=== PATIENT | female | born 1995 | race Caucasian/White ===

== ENCOUNTER → 2017-12-29 | Emergency (ER) | payer OTHER ==
[~2017-12-29] VITALS: Ht 154.9 cm; Wt 63.5 kg
== END | disposition home or self-care (01) ==
LOC: ER 13:38
DX: R53.81 Other malaise (principal); R50.9 Fever, unspecified; R51 Headache

== ENCOUNTER 2018-01-23 08:53 | Emergency (ER) | payer OTHER ==
[~2018-01-23] VITALS: Ht 154.9 cm; Wt 63.5 kg
[2018-01-23] MEDS ORDERED: PRENATAL 19 CH1 EAC1 (09:03)
[2018-01-23] MEDS ORDERED: FOLIC ACID1 MG (09:04)
[2018-01-23] MEDS ORDERED: KEFLEX500 MG PO (16:31)
== END 2018-01-23 16:55 | disposition home or self-care (01) ==
LOC: ER 08:53
DX: Z34.02 Encounter for supervision of normal first pregnancy, second trimester (principal); R10.31 Right lower quadrant pain; O23.32 Infections of other parts of urinary tract in pregnancy, second trimester

== ENCOUNTER 2018-01-25 17:33 | Emergency (ER) | payer OTHER ==
[~2018-01-25] VITALS: Ht 157.5 cm; Wt 63.5 kg
[~2018-01-25 17:33] MED LIST: FOLIC ACID1 MG; KEFLEX500 MG PO; PRENATAL 19 CH1 EAC1
[2018-01-26] MEDS ORDERED: MACROBID 100 M100 MG PO (02:04)
[2018-01-26] MEDS ORDERED: PYRIDIUM DS200 MG PO (02:04)
== END 2018-01-26 02:17 | disposition home or self-care (01) ==
LOC: ER 17:33
DX: Z34.02 Encounter for supervision of normal first pregnancy, second trimester (principal); M54.5 Low back pain; N39.0 Urinary tract infection, site not specified

== ENCOUNTER 2018-05-22 12:47 | Outpatient (CLI) | payer OTHER ==
[~2018-05-22 12:47] MED LIST changes: +MACROBID 100 M100 MG PO; +PYRIDIUM DS200 MG PO
== END 2018-05-22 17:43 | disposition home or self-care (01) ==
LOC: OBS/DEL 12:47
DX: O23.593 Infection of other part of genital tract in pregnancy, third trimester (principal); N76.0 Acute vaginitis; O60.03 Preterm labor without delivery, third trimester; Z34.83 Encounter for supervision of other normal pregnancy, third trimester

== ENCOUNTER 2018-05-25 11:19 | Inpatient (IN) | payer OTHER ==
[~2018-05-25] VITALS: Ht 152.4 cm; Wt 66.7 kg
[2018-05-26] MEDS ORDERED: FERRLECIT62.5 MG/2 IV (13:52)
[2018-05-30] MEDS ORDERED: CEFADROXIL500 MG PO (13:58)
[2018-05-30] MEDS ORDERED: NIFEDIPINE10 MG PO (13:59)
== END 2018-05-30 15:41 | disposition home or self-care (01) | DRG 778 ==
LOC: OBS/DEL 11:19 → OB/GYN 05-26 13:19 → OBS/DEL 05-26 13:19 → LDR 05-26 13:19 → OB/GYN 05-28 11:30
PROC: 4A1HXCZ Monitoring of Products of Conception, Cardiac Rate, External Approach (ICD-10-PCS; principal; 2018-05-26)
PROC: BY4FZZZ Ultrasonography of Third Trimester, Single Fetus (ICD-10-PCS; 2018-05-27)
DX: O60.03 Preterm labor without delivery, third trimester (principal); O23.43 Unspecified infection of urinary tract in pregnancy, third trimester; Z3A.31 31 weeks gestation of pregnancy